=== PATIENT | male | born 1965 | race Caucasian/White ===

== ENCOUNTER 2016-11-13 23:02 | Emergency (ER) | payer OTHER ==
[2016-11-13 23:21] VITALS: BP 145/75
[2016-11-14] MEDS ORDERED: DIPH/PERTUSS(ACELL)/TETANUS VAC/PF 0.5 ML SYR (>=10YO) IM ONE (00:01)
[2016-11-14] MEDS ORDERED: LIDOCAINE 1% INJ-PF (10 MG/ML) 30 ML SDV INJ ONE ×2 (00:01→01:14)
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
[2016-11-14] MEDS ORDERED: CEFTRIAXONE INJ 1000 MG VIAL IM ONE (01:14)
[2016-11-14] MEDS ORDERED: CIPROFLOXACIN HCL 500 MG TABLET PO ONE (01:15)
[2016-11-14] MEDS ORDERED: OXYCODONE-ACETAMINOPHEN 5-325 MG TABLET PO ONE (01:15)
[2016-11-14] MEDS ORDERED: ONDANSETRON 4 MG TAB.RAPDIS PO ONE (01:16)
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
== END 2016-11-14 01:45 | disposition home or self-care (01) ==
LOC: ER 23:02
PROC: 0HQDXZZ Repair Right Lower Arm Skin, External Approach (ICD-10-PCS; principal; 2016-11-13)
DX: S52.291A Other fracture of shaft of right ulna, initial encounter for closed fracture (principal); X99.8XXA Assault by other sharp object, initial encounter; Y92.009 Unspecified place in unspecified non-institutional (private) residence as the place of occurrence of the external cause
CPT/HCPCS: 99284; 73090; 90715; 12002; S0119; J3490; J0696